=== PATIENT | female | born 1975 | race Two or more races ===

== ENCOUNTER 2020-08-31 08:30 | Day surgery (SDC) | payer OTHER ==
[2020-08-31] MEDS ORDERED: MORGIDOX100 MG PO (13:33)
[2020-08-31] MEDS ORDERED: NAPROXEN SODIU500 M1 PO (13:33)
== END 2020-08-31 21:00 | disposition home or self-care (01) ==
LOC: CIR.AMB 08:30
PROVIDERS: ATTEND Obstetrics & Gynecology
DX: D25.0 Submucous leiomyoma of uterus (principal); N84.0 Polyp of corpus uteri; Z20.822 Contact with and (suspected) exposure to COVID-19